=== PATIENT | female | born 1965 | race Two or more races ===

== ENCOUNTER 2023-08-18 08:48 | Day surgery (SDC) | payer MEDICARE, OTHER ==
[~2023-08-18] VITALS: Ht 170.2 cm; Wt 100.3 kg
[~2023-08-18 08:48] MED LIST: ALBU8.5H INH; ALL10TAB3 PO; AMIT25TA19 PO; AMLO1TAB24 PO; D 50CAP2 PO; FAMO1TAB11 PO; FURO20TA2 PO; GABA600T4 PO; INSUH10VL SC; ISOS1TAB35 PO; LIDOCAINE W/EPINEPHRINE 1% 20ML VIAL XX ONE; METO1TAB32 PO; MONT10TA97 PO; OXYC1TAB23 PO; POTA10TA67 PO; PRAV40TA2 PO; SEMA2PEN SC; SODIUM BICARBONATE 8.4% INJ 50MEQ 50ML VIAL XX ONE; TOPI100T9 PO
[2023-08-18] MEDS ORDERED: BACITRACIN OINTMENT 30GM TUBE As Ordered ONE (11:48)
[2023-08-18 12:25] VITALS: BP 149/81; TEMP 97.6; O2SAT 100
== END 2023-08-18 13:20 | disposition home or self-care (01) ==
LOC: M SDC 08:48
PROVIDERS: ATTEND Orthopaedic Surgery Hand Surgery
DX: M65.4 Radial styloid tenosynovitis [de Quervain] (principal); I10 Essential (primary) hypertension; E11.9 Type 2 diabetes mellitus without complications; E78.00 Pure hypercholesterolemia, unspecified; J45.909 Unspecified asthma, uncomplicated; Z79.899 Other long term (current) drug therapy; Z79.85 Long-term (current) use of injectable non-insulin antidiabetic drugs; Z79.4 Long term (current) use of insulin; Z86.14 Personal history of Methicillin resistant Staphylococcus aureus infection; Z88.6 Allergy status to analgesic agent; Z88.5 Allergy status to narcotic agent

== ENCOUNTER → 2023-10-17 | Day surgery (SDC) | payer MEDICARE, OTHER ==
[~2023-10-17] VITALS: Ht 170.2 cm; Wt 99.8 kg
[2023-10-17] MEDS: BACITRACIN OINTMENT 30GM TUBE As Ordered ONE (12:23)
[2023-10-17 12:35] VITALS: BP 128/85; TEMP 98.4; O2SAT 97
== END | disposition home or self-care (01) ==
LOC: M SDC 09:10
PROVIDERS: ATTEND Orthopaedic Surgery Hand Surgery
DX: M65.332 Trigger finger, left middle finger (principal); I10 Essential (primary) hypertension; E11.40 Type 2 diabetes mellitus with diabetic neuropathy, unspecified; Z79.4 Long term (current) use of insulin; M65.4 Radial styloid tenosynovitis [de Quervain]; Z79.899 Other long term (current) drug therapy

== ENCOUNTER 2024-01-30 08:28 | Day surgery (SDC) | payer MEDICARE, OTHER ==
[~2024-01-30] VITALS: Ht 170.2 cm; Wt 99.3 kg
[~2024-01-30 08:28] MED LIST changes: -LIDOCAINE W/EPINEPHRINE 1% 20ML VIAL XX ONE; -SODIUM BICARBONATE 8.4% INJ 50MEQ 50ML VIAL XX ONE
[2024-01-30] MEDS ORDERED: SODIUM BICARBONATE 8.4% INJ 50MEQ 50ML VIAL XX ONE (09:00)
[2024-01-30] MEDS ORDERED: LIDOCAINE W/EPINEPHRINE 1% 20ML VIAL XX ONE (09:00)
[2024-01-30] MEDS: BACITRACIN OINTMENT 30GM TUBE As Ordered ONE (10:03)
[2024-01-30 10:10] VITALS: BP 140/75; TEMP 98; O2SAT 96
== END 2024-01-30 10:35 | disposition home or self-care (01) ==
LOC: M SDC 08:28
PROVIDERS: ATTEND Orthopaedic Surgery Hand Surgery
DX: M65.331 Trigger finger, right middle finger (principal)

== ENCOUNTER → 2024-04-06 | Outpatient (CLI) | payer MEDICARE, OTHER | LOC: M LAB 16:55 | PROVIDERS: ATTEND Ophthalmology | DX: E10.3313 Type 1 diabetes mellitus with moderate nonproliferative diabetic retinopathy with macular edema, bilateral (principal); H16.223 Keratoconjunctivitis sicca, not specified as Sjogren's, bilateral; H53.8 Other visual disturbances ==

== ENCOUNTER → 2024-07-13 | Outpatient (CLI) | payer MEDICARE, OTHER ==
[~2024-07-13] MED LIST changes: +GABA-1490 PO; -GABA600T4 PO
== END ==
LOC: M RAD 15:12
PROVIDERS: ATTEND Physician Assistant
DX: Z87.442 Personal history of urinary calculi (principal)

== ENCOUNTER → 2024-09-23 | Outpatient (CLI) | payer MEDICARE, OTHER ==
[2024-09-23 13:34] LABS: BLOOD UREA NITROGEN 16 MG/DL (9-23); CALCIUM LEVEL 9.9 MG/DL (8.5-10.1); CARBON DIOXIDE LEVEL 27 MMOL/L (20-31); CHLORIDE LEVEL 108 MMOL/L (98-107); CREATININE FOR GFR 0.94 MG/DL (0.55-1.30); GLOMERULAR FILTRATION RATE > 60.0 (>51); GLUCOSE, FASTING 135 MG/DL (60-100); SODIUM LEVEL 145 MMOL/L (136-145)
== END ==
LOC: M LAB 12:10
PROVIDERS: ATTEND Urology
DX: R31.9 Hematuria, unspecified (principal)

== ENCOUNTER → 2024-09-27 | Outpatient (CLI) | payer MEDICARE, OTHER ==
[~2024-09-27] MED LIST changes: +ISOVUE-370 76% 100ML VIAL As Ordered ONE
== END ==
LOC: M RAD 08:36
PROVIDERS: ATTEND Urology
DX: R31.0 Gross hematuria (principal)
CPT/HCPCS: 74178; Q9967